=== PATIENT | male | born 1980 | race Caucasian/White ===

== ENCOUNTER 2016-04-25 13:56 | Emergency (ER) | payer MEDICARE ==
[2016-04-25] MEDS ORDERED: Lidocaine 1% 20 ML MDV ONE (14:08)
[2016-04-25] MEDS ORDERED: Bacitracin Zinc 1 Packet ONE (14:18)
== END 2016-04-25 14:33 ==
LOC: NAV ERS 13:56
DX: S01.111A Laceration without foreign body of right eyelid and periocular area, initial encounter (principal); Z87.891 Personal history of nicotine dependence; W22.8XXA Striking against or struck by other objects, initial encounter
CPT/HCPCS: 12011; J2001

== ENCOUNTER 2016-04-29 10:43 | Emergency (ER) | payer MEDICARE | END 2016-04-29 11:11 | LOC: NAV ERS 10:43 | DX: S05.31XD Ocular laceration without prolapse or loss of intraocular tissue, right eye, subsequent encounter (principal); Z87.891 Personal history of nicotine dependence; W45.8XXD Other foreign body or object entering through skin, subsequent encounter | CPT/HCPCS: 99281 ==